=== PATIENT | male | born 1960 ===

== ENCOUNTER → 2017-05-15 | Outpatient (REF) | payer OTHER ==
[~2017-05-15] MED LIST: CALC-797 PO; MULT-1335 PO; OMEG-26 PO
== END ==
LOC: ZZSENDIN 14:07
PROVIDERS: ATTEND Family Medicine
DX: D72.828 Other elevated white blood cell count (principal)

== ENCOUNTER → 2017-05-18 | Outpatient (REF) | payer OTHER ==
[2017-05-18 15:03] LABS: PLATELET COUNT, AUTOMATED 216 K/uL (150-450)
== END ==
LOC: ZZSENDIN 14:55
PROVIDERS: ATTEND Family Medicine
DX: D72.828 Other elevated white blood cell count (principal)
CPT/HCPCS: 85007; 85027

== ENCOUNTER 2017-06-25 08:27 | Outpatient (RCR) | payer OTHER ==
[2017-05-22 08:32] VITALS: BP 143/90
[2017-05-22 09:30] LABS: PLATELET COUNT, AUTOMATED 165 K/uL (150-450)
--- NOTE | 2017-05-22 17:56 | CONSULTATION ---
EVENT DATE: May 22, 2017 REFERRING PHYSICIAN Dion Macias MD REASON FOR CONSULTATION Evaluation and management of lymphocytosis. HISTORY OF PRESENT ILLNESS Patient is a 56-year-old male who is followed by Dr. Macias for his annual preventive visit. Patient had a CBC done on May 18, 2017 which showed white blood cell count of 42.5, hemoglobin 16.2, hematocrit 49.2, platelets 216, 000. Lymphocyte count was 82%. Patient denies any B symptoms. He denies any fever, night sweating, loss of appetite or loss of weight. 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 PAST SURGICAL HISTORY Excision of insulinoma at [facility], 1994. FAMILY HISTORY Negative for cancer, but patient does not know much about his maternal family history. SOCIAL HISTORY Patient is single with no children. He is hired at the [employer] for [employer]. He drinks a couple of beers per day. He denies any abuse of tobacco or illicit drugs. CURRENT MEDICATIONS 1. [place] 3 1000 mg twice daily. 2. Multivitamins one tablet daily. ALLERGIES No known drug allergies. REVIEW OF SYSTEMS CONSTITUTIONAL: No appetite or weight change. No fever, chills or sweating. No recent infection. HEENT: Ears: No tinnitus or hearing problem. Nose: No nasal discharge or epistaxis. Throat: No sore throat or mouth ulcers. Eyes: No diplopia or visual changes. RESPIRATORY: No shortness of breath. No cough, expectoration or hemoptysis. CARDIOVASCULAR: No chest pain, orthopnea, or paroxysmal nocturnal dyspnea (PND) . No edema. No palpitations. GASTROINTESTINAL: No nausea or vomiting. No diarrhea or constipation. No change in bowel movements. No heartburn or swallowing difficulties. No abdominal pain. No jaundice. No hematemesis, melena or rectal bleeding. GENITOURINARY: No hematuria or dysuria. MUSCULOSKELETAL: He has stiffness in his joints in the morning. NEUROLOGICAL: No tingling or numbness in the hands or feet. No headaches or convulsions. HEMATOLOGIC/LYMPHATIC: No bleeding or easy bruising. No weakness or fatigue. No enlarged lymph nodes. SKIN: No skin rash or lumps. PSYCHIATRIC: No anxiety or depression. PHYSICAL EXAMINATION GENERAL: Looks stable. Well-developed, well-nourished, and in no acute distress. VITAL SIGNS: Blood pressure 143/90, pulse 77 per minute, respirations 16 per minute, temperature 97.3, pulse ox 95% on room air. HEENT: Head: Atraumatic. No sinus tenderness to palpation. Eyes: No icterus or conjunctivitis. Mouth and throat: No oral thrush or mucositis. NECK: Supple. No cervical or supraclavicular lymphadenopathy. LUNGS: Clear to auscultation and percussion bilaterally. HEART: Regular rate and rhythm. No gallops, murmurs, clicks or rubs. ABDOMEN: Soft and lax. No tenderness. No hepatosplenomegaly. No masses. EXTREMITIES: No cyanosis, clubbing or edema. LYMPHATICS: No peripheral lymphadenopathy. NEUROLOGICAL: Conscious, alert and oriented times three. No focal motor or sensory deficits. PSYCHIATRIC: Mood and affect appear normal. SKIN: No skin rash, bruise or purpuric eruption. ASSESSMENT Absolute lymphocytosis. Could be due to an underlying lymphoproliferative disorder. I am planning to proceed with CBC, LDH, uric acid and chem panel. I will also check his peripheral blood for flow cytometry. If the flow cytometry is positive for CLL I am planning to request peripheral blood for FISH for CLL to have an idea about the prognosis of his CLL based on his chromosomal abnormalities. If the flow cytometry is suggestive of lymphoma then I will proceed with CT of the chest, abdomen and pelvis, and bone marrow aspiration biopsy for staging. I explained that to the patient. The patient is agreeable with the plan of management. I talked to him about the natural history of CLL and that the patient could not need treatment in the future if this is the case. We will see him next week for further evaluation and management after the results of the flow cytometry. PLAN 1. CBC. 2. CMP. 3. LDH. 4. Uric acid. 5. Peripheral blood for flow cytometry. 6. Consider FISH for CLL if flow cytometry is positive for CLL. 7. Consider CT of chest, abdomen and pelvis with IV and p.o. contrast and bone marrow aspiration biopsy if the flow cytometry is suggestive of lymphoma. 8. Patient to return in one week for further evaluation and management. 9. Patient to contact us for any new concerns or complaints. [facility]
[2017-05-29 08:37] VITALS: BP 142/93
--- NOTE | 2017-05-29 09:21 | ONC Progress Note - NP.Halsey ---
Patient History Date of Service May 29, 2017 Reason For Visit/HPI Patient is seen in the clinic today to review lab results from his flow cytometry, CBC and CMP, uric acid. Patient consult it with Dr. Daniels on 05/22 after being referred by Dr. Mosley for his annual preventative visit. Patient was noted to have a white cell count of 42.5, hemoglobin 16.2, hematocrit 49.2 and platelet count of 216,000 on 05/18/2017 lab draw. White cell count was repeated on 05/22/2017 and patient continues to have an elevated white cell count of 40.2. Chemistry was essentially unremarkable. AST is elevated slightly, patient does report that he drinks 2-3 beers last evening's. Flow cytometry was positive for CD5 positive B-cell lymphoproliferative disorder with the phenotype characteristics of chronic lymphocytic leukemia or small lymphocytic lymphoma, CLL/SLL area Information was reviewed with patient in detail today to include education regarding diagnosis of CLL. Written education material was reviewed and given to patient for further review. Recommendation of pneumonia vaccination with Prevnar followed by PPS V 23 his NCCN guidelines recommendation for any person newly diagnosed. Patient continues to deny any B symptoms such as night sweats, loss of appetite or loss of weight, no abdominal pain or discomfort. Problem List (1) Personal history of CLL (chronic lymphocytic leukemia) Oncology History Patient presented to primary care provider for annual preventative visit. CBC on 05/18/2017 showed a white cell blood count of 42.5, hemoglobin 16.2, hematocrit 49.2 and platelet count 216,000. On 05/22/2017 white cell count was 40.2. Phenotyping by flow cytometry completed shows CD5 positive B-cell lymphoproliferative disorder with the phenotype characteristic of chronic lymphocytic leukemia or small lymphocytic lymphoma. Flow cytometry analysis of the peripheral blood specimen indicates that 49% of the CD45 positive leukocytes are lymphocytes, 4% or monocytes and 46% or myeloid cells. 10% of the lymphocytes are T cells, 5% R NK cells and 82% R B cells. The T cells appear phenotypically normal and have a CD4: CD8 ratio of 3.5. The NK cells appear phenotypically normal for the markers evaluated. The B cells are monotypic and express dim kappa light chains, CD5, CD19, dim CD20, CD23, and CD 200, but do not express CD10 or CD38. The myeloid cells demonstrate phenotypically normal expression patterns for the antigens evaluated. Patient will complete peripheral blood for FISH for CLL Psychosocial History Social History Patient is single with no children. 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 He denies any abuse of tobacco or illicit drugs. Medications and Allergies Reported Medications [place]-3/Dha/Epa/Fish Oil (FISH OIL 1,000 MG SOFTGEL) 1 Each Capsule, 1 EACH PO BID 07/27/12 Multivitamins W-Minerals (Multiple Vitamin) 1 Tab Tablet, 1 TAB PO DAILY 07/27/12 Discontinued Reported Medications Calcium Carbonate/Vitamin D3 (CALCIUM 600 + VIT D CAPLET) 1 Each Tablet, 1 EACH PO DAILY 07/27/12 Allergies: Coded Allergies: No Known Drug Allergies (Unverified , 07/27/12) Review of System/Physical Exam Review of Systems All Systems Reviewed/Normal: Yes Physical Exam Vital Signs Temperature: 97.1 Pulse: 76 BP Systolic: 142 BP Diastolic: 93 Respiratory Rate: 16 O2 SAT: 93 O2 Delivery: Height (inches) 68.10 Weight lb: 134 Weight oz: Weight Kg (Bud): Pain: 0 ECOG Score: 0 General: Stable, Well Developed, Well Nourished, Not In Acute Distress Psychiatric: Mood appears normal, Affect appears normal Other Rest of the exam was deferred today to review diagnostic studies. Diagnostic Studies Diagnostic Studies Laboratory Phenotyping by flow cytometry completed on 05/22/2017 was reviewed with patient today Laboratory Tests 05/22/17 09:09 Laboratory Tests 05/22/17 09:09: White Blood Count 40.2, Red Blood Count 5.34, Hemoglobin 16.2, Hematocrit 49.1, Mean Corpuscular Volume 92.1, Mean Corpuscular Hemoglobin 30.4, Mean Corpuscular Hemoglobin Concent 33.0, Red Cell Distribution Width 13.0, Platelet Count 165, Mean Platelet Volume 8.4, Neutrophils (%) (Auto) , Lymphocytes (%) ( Auto) , Monocytes (%) (Auto) , Eosinophils (%) (Auto) , Basophils (%) (Auto) , Nucleated RBC Relative Count (auto) , Neutrophils # (Auto) , Lymphocytes # (Auto ) , Monocytes # (Auto) , Eosinophils # (Auto) , Basophils # (Auto) , Nucleated RBC Absolute Count (auto) , Neutrophils % (Manual) 19, Band Neutrophils % 4, Lymphocytes % (Manual) 65, Atypical Lymphocytes % 10, Monocytes % (Manual) 2, Eosinophils % (Manual) 0, Basophils % (Manual) 0, Peripheral Blood Smear Yes, Miscellaneous Test See report, Sodium Level 135, Potassium Level 4.7, Chloride Level 101, Carbon Dioxide Level 26, Blood Urea Nitrogen 16, Creatinine 1.00, Glomerular Filtration Rate Calc > 60.0, Random Glucose 89, Uric Acid 5.2, Calcium Level 9.5, Total Bilirubin 0.9, Aspartate Amino Transf (AST/SGOT) 43, Alanine Aminotransferase (ALT/SGPT) 48, Alkaline Phosphatase 152, Lactate Dehydrogenase 400, Total Protein 7.1, Albumin 4.1 05/25/17 09:00: Lab Scanned Report Reference Lab Assessment and Plan Assessment & Plan Patient initially seen for absolute lymphocytosis, referred by Dr. Almanza primary care provider. On 05/18/2017 white cell count was 42.5, repeat labs on 05/22/2017 shows a continued elevation of white cell count of 40.2. Flow cytometry completed on 05/22/2017 shows CD5 positive B-cell lymphoproliferative disorder with the phenotype characteristic of chronic lymphocytic leukemia or small lymphocytic lymphoma. Patient denies any B-cell symptoms and has had no changes in weight or appetite. He denies any fatigue. Patient will complete peripheral blood for Fish for CLL. Patient will then follow with Dr. Daniels to review results. Discussion regarding diagnosis of CLL and education material was given to patient today for further review. It will be determined if patient will need to start therapy. If so patient will be seen in clinic for education prior to treatment. If no treatment is started patient will be monitored closely for disease process. Patient verbalized understanding. NCCN guidelines for CLL recommends Prevnar 13 pneumonia vaccine followed by PPSV 23 for any patient with a new diagnosis. Patient will discuss this with his primary care provider in the near future. Plan: Fish for CLL drawn today. Follow with Dr. Daniels to review results. Patient to contact us if he has questions or concerns. I personally spent a total of 30 minutes. Of that 25 minutes was counseling/ coordination of patient's care. See my note above for details. Copies to: MEAGAN RIVERA MD, NANCY J PROFESSOR OF LITERATURE-BC, ONC May 29, 2017 09:21
[~2017-06-25] VITALS: Ht 173 cm; Wt 67.2 kg
[2017-06-25 08:35] VITALS: BP 146/90
--- NOTE | 2017-06-25 18:25 | ONCOLOGY FOLLOW UP NOTE ---
EVENT DATE: June 25, 2017 DIAGNOSIS Chronic lymphocytic leukemia with normal FISH for CLL. CHIEF COMPLAINT Patient is here today for followup of his CLL. HEMATOLOGY/ONCOLOGY HISTORY Patient is a 56-year-old male who is followed by Dr. Macias for his annual preventive visit. Patient had a CBC done on May 18, 2017 which showed white blood cell count of 42.5, hemoglobin 16.2, hematocrit 49.2, platelets 216, 000. Lymphocyte count was 82%. Patient denies any B symptoms. He denies any fever, night sweating, loss of appetite or loss of weight. 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 FISH for CLL came back normal without any chromosomal abnormalities. HISTORY OF PRESENT ILLNESS Patient is here today for followup of his CLL. He is doing very well currently. He is totally asymptomatic. He denies any B symptoms. 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 PAST SURGICAL HISTORY Excision of insulinoma at [facility], 1994. FAMILY HISTORY Negative for cancer, but patient does not know much about his maternal family history. SOCIAL HISTORY Patient is single with no children. He is hired at the [employer] for [employer]. He drinks a couple of beers per day. He denies any abuse of tobacco or illicit drugs. CURRENT MEDICATIONS 1. [place] 3 1000 mg twice daily. 2. Multivitamins one tablet daily. ALLERGIES No known drug allergies. REVIEW OF SYSTEMS CONSTITUTIONAL: No appetite or weight change. No fever, chills or sweating. No recent infection. HEENT: Ears: No tinnitus or hearing problem. Nose: No nasal discharge or epistaxis. Throat: No sore throat or mouth ulcers. Eyes: No diplopia or visual changes. RESPIRATORY: No shortness of breath. No cough, expectoration or hemoptysis. CARDIOVASCULAR: No chest pain, orthopnea, or paroxysmal nocturnal dyspnea (PND) . No edema. No palpitations. GASTROINTESTINAL: No nausea or vomiting. No diarrhea or constipation. No change in bowel movements. No heartburn or swallowing difficulties. No abdominal pain. No jaundice. No hematemesis, melena or rectal bleeding. GENITOURINARY: No hematuria or dysuria. MUSCULOSKELETAL: He has stiffness in his joints in the morning. NEUROLOGICAL: No tingling or numbness in the hands or feet. No headaches or convulsions. HEMATOLOGIC/LYMPHATIC: No bleeding or easy bruising. No weakness or fatigue. No enlarged lymph nodes. SKIN: No skin rash or lumps. PSYCHIATRIC: No anxiety or depression. PHYSICAL EXAMINATION GENERAL: Looks stable. Well-developed, well-nourished, and in no acute distress. VITAL SIGNS: Blood pressure 146/90, pulse 94 per minute, respirations 16 per minute, temperature 97, pulse ox 96% on room air. HEENT: Head: Atraumatic. No sinus tenderness to palpation. Eyes: No icterus or conjunctivitis. Mouth and throat: No oral thrush or mucositis. NECK: Supple. No cervical or supraclavicular lymphadenopathy. LUNGS: Clear to auscultation and percussion bilaterally. HEART: Regular rate and rhythm. No gallops, murmurs, clicks or rubs. ABDOMEN: Soft and lax. No tenderness. No hepatosplenomegaly. No masses. EXTREMITIES: No cyanosis, clubbing or edema. LYMPHATICS: No peripheral lymphadenopathy. NEUROLOGICAL: Conscious, alert and oriented times three. No focal motor or sensory deficits. PSYCHIATRIC: Mood and affect appear normal. SKIN: No skin rash, bruise or purpuric eruption. DIAGNOSTIC DATA FISH for CLL was normal without any chromosomal abnormalities. Flow cytometry of the peripheral blood came back positive for CD5 positive B cell lymphoproliferative disorder consistent with CLL/SLL. CBC showed white count of 40.2, hemoglobin 16.2, hematocrit 49.1, platelets 165,000. Lymphocytes 65%, atypical lymphocytes 10%. Chem panel totally normal except sodium 135, AST 43, alkaline phosphatase 152. Other parameters are normal. ASSESSMENT Chronic lymphocytic leukemia proved by flow cytometry done on May 22, 2017. FISH for CLL was normal without any chromosomal abnormalities. Patient denies any B symptoms currently. His hemoglobin and hematocrit and platelet count all are within the normal range. There is no indication to start any treatment for CLL at the moment. I am planning to continue surveillance. I will see him again in six months with CBC, chem panel, LDH, uric acid. Patient was advised to contact us for any new concerns or complaints. PLAN 1. Continue followup. 2. Patient to return in six months with CBC, chem panel, LDH, uric acid. 3. Patient to contact us for any new concerns or complaints. CARI
== END 2017-07-22 15:31 | disposition home or self-care (01) ==
LOC: ONC 08:27
PROVIDERS: ATTEND Internal Medicine Hematology
DX: C91.10 Chronic lymphocytic leukemia of B-cell type not having achieved remission (principal); Z79.899 Other long term (current) drug therapy
CPT/HCPCS: 36415; 82040; 82247; 82310; 82374; 82435; 82565; 82947; 83615; 84075; 84132; 84155; 84295; 84450; 84460; 84520; 84550; 85025; 88184; 88185; 88189; 88271; 88275; 88291; 99202; 99212

== ENCOUNTER 2017-12-31 08:56 | Outpatient (RCR) | payer OTHER ==
[2017-12-29 09:52] LABS: PLATELET COUNT, AUTOMATED 179 K/uL (150-450)
[2017-12-31 09:02] VITALS: BP 131/87
--- NOTE | 2017-12-31 09:47 | [facility] ONCOLOGY NOTE ---
EVENT DATE: December 31, 2017 DIAGNOSIS Chronic lymphocytic leukemia with normal FISH for CLL. CHIEF COMPLAINT Patient is here today for followup of his chronic lymphocytic leukemia. HEMATOLOGY/ONCOLOGY HISTORY Patient is a 56-year-old male who is followed by Dr. Macias for his annual preventive visit. Patient had a CBC done on May 18, 2017 which showed white blood cell count of 42.5, hemoglobin 16.2, hematocrit 49.2, platelets 216,000. Lymphocyte count was 82%. Patient denies any B symptoms. He denies any fever, night sweating, loss of appetite or loss of weight. 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 FISH for CLL came back normal without any chromosomal abnormalities. HISTORY OF PRESENT ILLNESS Patient is here today for followup of his chronic lymphocytic leukemia. He is doing very well currently and denies any complaints today. No B symptoms. 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 PAST SURGICAL HISTORY Excision of insulinoma at [facility], 1994. FAMILY HISTORY Negative for cancer, but patient does not know much about his maternal family history. SOCIAL HISTORY Patient is single with no children. 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 He denies any abuse of tobacco or illicit drugs. CURRENT MEDICATIONS 1. [place] 3 1000 mg twice daily. 2. Multivitamins one tablet daily. ALLERGIES No known drug allergies. REVIEW OF SYSTEMS CONSTITUTIONAL: No appetite or weight change. No fever, chills or sweating. No recent infection. HEENT: Ears: No tinnitus or hearing problem. Nose: No nasal discharge or epistaxis. Throat: No sore throat or mouth ulcers. Eyes: No diplopia or visual changes. RESPIRATORY: No shortness of breath. No cough, expectoration or hemoptysis. CARDIOVASCULAR: No chest pain, orthopnea, or paroxysmal nocturnal dyspnea (PND). No edema. No palpitations. GASTROINTESTINAL: No nausea or vomiting. No diarrhea or constipation. No change in bowel movements. No heartburn or swallowing difficulties. No abdominal pain. No jaundice. No hematemesis, melena or rectal bleeding. GENITOURINARY: No hematuria or dysuria. MUSCULOSKELETAL: No pain in the muscles, joints or bones. NEUROLOGICAL: No tingling or numbness in the hands or feet. No headaches or convulsions. HEMATOLOGIC/LYMPHATIC: No bleeding or easy bruising. No weakness or fatigued. No enlarged lymph nodes. SKIN: No skin rash or lumps. PSYCHIATRIC: No anxiety or depression. PHYSICAL EXAMINATION GENERAL: Looks stable. Well-developed, well-nourished, and in no acute distress. VITAL SIGNS: Blood pressure 131/87, pulse 98 per minute, respirations 16 per minute, temperature 97.3, pulse oximetry 99% on room air. HEENT: Head: Atraumatic. No sinus tenderness to palpation. Eyes: No icterus or conjunctivitis. Mouth and throat: No oral thrush or mucositis. NECK: Supple. No cervical or supraclavicular lymphadenopathy. LUNGS: Clear to auscultation and percussion bilaterally. HEART: Regular rate and rhythm. No gallops, murmurs, clicks or rubs. ABDOMEN: Soft and lax. No tenderness. No hepatosplenomegaly. No masses. EXTREMITIES: No cyanosis, clubbing or edema. LYMPHATICS: No peripheral lymphadenopathy. NEUROLOGICAL: Conscious, alert and oriented times three. No focal motor or sensory deficits. PSYCHIATRIC: Mood and affect appear normal. SKIN: No skin rash, bruise or purpuric eruption. DIAGNOSTIC DATA CBC showed white count 45.9, hemoglobin 16.6, hematocrit 50, platelets 179. Chem panel totally normal except sodium 133, potassium 5.4, blood sugar 116, AST 40. LDH and uric acid were normal. ASSESSMENT Chronic lymphocytic leukemia confirmed by flow cytometry done on May 22, 2017. FISH for CLL was normal without any chromosomal abnormalities. Patient denies any B symptoms. His CBC showed normal hemoglobin and platelet count. His white count increased from 40.2 to 45.9. There is no indication currently to start treatment for his CLL. I am planning to continue followup. I will see him again in six months with CBC, chem panel, LDH and uric acid. PLAN 1. Continue followup. 2. Patient to return in six months with CBC, chem panel, LDH, uric acid. 3. Patient to contact us for any new concerns or complaints. CARI
== END 2018-01-20 09:06 | disposition home or self-care (01) ==
LOC: ONC 08:56
PROVIDERS: ATTEND Internal Medicine Hematology
DX: C91.10 Chronic lymphocytic leukemia of B-cell type not having achieved remission (principal)
CPT/HCPCS: 36415; 82040; 82247; 82310; 82374; 82435; 82565; 82947; 83615; 84075; 84132; 84155; 84295; 84450; 84460; 84520; 84550; 85025; 99212

== ENCOUNTER 2018-07-01 08:56 | Outpatient (RCR) | payer OTHER ==
[2018-06-24 08:50] VITALS: BP 137/95
[2018-06-24 09:10] LABS: PLATELET COUNT, AUTOMATED 187 K/uL (150-450)
[2018-07-01 09:07] VITALS: BP 157/91
[2018-07-01] MEDS ORDERED: MULT-1354 PO (09:09)
--- NOTE | 2018-07-01 13:14 | [facility] ONCOLOGY NOTE ---
EVENT DATE: July 01, 2018 DIAGNOSIS Chronic lymphocytic leukemia with normal FISH for CLL. CHIEF COMPLAINT Patient is here today for followup of his chronic lymphocytic leukemia. HEMATOLOGY/ONCOLOGY HISTORY Patient is a 57-year-old male who is followed by Dr. Macias for his annual preventive visit. Patient had a CBC done on May 18, 2017 which showed white blood cell count of 42.5, hemoglobin 16.2, hematocrit 49.2, platelets 216,000. Lymphocyte count was 82%. Patient denies any B symptoms. He denies any fever, night sweating, loss of appetite or loss of weight. 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 FISH for CLL came back normal without any chromosomal abnormalities. HISTORY OF PRESENT ILLNESS Patient is here today for followup of his chronic lymphocytic leukemia. He is doing fine currently and totally asymptomatic. 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 PAST SURGICAL HISTORY Excision of insulinoma at [facility], 1994. FAMILY HISTORY Negative for cancer, but patient does not know much about his maternal family history. SOCIAL HISTORY Patient is single with no children. He is hired at the [employer] for [employer]. He drinks a couple of beers per day. He denies any abuse of tobacco or illicit drugs. CURRENT MEDICATIONS 1. Martelle 3 1000 mg twice daily. 2. Multivitamins one tablet daily. ALLERGIES No known drug allergies. REVIEW OF SYSTEMS CONSTITUTIONAL: No appetite or weight change. No fever, chills or sweating. No recent infection. HEENT: Ears: No tinnitus or hearing problem. Nose: No nasal discharge or epistaxis. Throat: No sore throat or mouth ulcers. Eyes: No diplopia or visual changes. RESPIRATORY: No shortness of breath. No cough, expectoration or hemoptysis. CARDIOVASCULAR: No chest pain, orthopnea, or paroxysmal nocturnal dyspnea (PND). No edema. No palpitations. GASTROINTESTINAL: No nausea or vomiting. No diarrhea or constipation. No change in bowel movements. No heartburn or swallowing difficulties. No abdominal pain. No jaundice. No hematemesis, melena or rectal bleeding. GENITOURINARY: No hematuria or dysuria. MUSCULOSKELETAL: No pain in the muscles, joints or bones. NEUROLOGICAL: No tingling or numbness in the hands or feet. No headaches or convulsions. HEMATOLOGIC/LYMPHATIC: No bleeding or easy bruising. No weakness or fatigued. No enlarged lymph nodes. SKIN: No skin rash or lumps. PSYCHIATRIC: No anxiety or depression. PHYSICAL EXAMINATION GENERAL: Looks stable. Well-developed, well-nourished, and in no acute distress. VITAL SIGNS: Blood pressure 157/91, pulse 71 per minute, respirations 16 per minute, temperature 97.6, pulse oximetry 99% on room air. HEENT: Head: Atraumatic. No sinus tenderness to palpation. Eyes: No icterus or conjunctivitis. Mouth and throat: No oral thrush or mucositis. NECK: Supple. No cervical or supraclavicular lymphadenopathy. LUNGS: Clear to auscultation and percussion bilaterally. HEART: Regular rate and rhythm. No gallops, murmurs, clicks or rubs. ABDOMEN: Soft and lax. No tenderness. No hepatosplenomegaly. No masses. EXTREMITIES: No cyanosis, clubbing or edema. LYMPHATICS: No peripheral lymphadenopathy. NEUROLOGICAL: Conscious, alert and oriented times three. No focal motor or sensory deficits. PSYCHIATRIC: Mood and affect appear normal. SKIN: No skin rash, bruise or purpuric eruption. DIAGNOSTIC DATA CBC showed white count 53.1, hemoglobin 15.3, hematocrit 47.1, platelets 187,000. Absolute lymphocytic count 46,640. Chem panel totally normal except sodium 136, potassium 5.6, blood sugar 71 and AST 47. . ASSESSMENT Chronic lymphocytic leukemia confirmed by flow cytometry done on May 22, 2017. FISH for CLL was normal without any chromosomal abnormalities. Patient denies any B symptoms. His CBC showed normal platelet count and hemoglobin. His current absolute lymphocytic count is 46,640. There is no indication to start treatment for his CLL currently. I am planning to see him again in six months with CBC, chem panel, LDH and uric acid. PLAN 1. Continue followup. 2. Patient to return in six months with CBC, chem panel, LDH, uric acid. 3. Patient to contact us for any new concerns or complaints. CARI
== END 2018-08-18 09:03 | disposition home or self-care (01) ==
LOC: ONC 08:56
PROVIDERS: ATTEND Internal Medicine Hematology
DX: C91.10 Chronic lymphocytic leukemia of B-cell type not having achieved remission (principal)
CPT/HCPCS: 36415; 82040; 82247; 82310; 82374; 82435; 82565; 82947; 83615; 84075; 84132; 84155; 84295; 84450; 84460; 84520; 84550; 85025; 99212